=== PATIENT | female | born 1990 | race Caucasian/White ===

== ENCOUNTER 2018-08-11 20:23 | Emergency (ER) | payer SELFPAY ==
[2018-08-11 20:39] VITALS: BP 122/81
[2018-08-11] MEDS ORDERED: PENICILLIN V POTASSIUM 500 MG TABLET PO ONE (21:53)
[2018-08-11] MEDS ORDERED: HYDROCODONE/ACETAMINOPHEN 5-325 MG (6 TAB/ER DISP) PO PRN (21:54)
--- NOTE | 2018-08-11 21:56 | ER Document Report ---
HPI - HPI Time Seen by Provider: 08/11/18 21:53 Pain Level: 4 Context: Patient is a 28-year-old female that comes to the emergency department for chief complaint of toothache for the past 3 days, pain is in her left upper jaw area, she states she knows she has a fractured tooth in this area. She denies history of dental abscess or extractions. She denies sore throat, neck pain, fever/chills, or any other complaints. She denies . - REPRODUCTIVE Reproductive: DENIES: : Past Medical History - General Information source: Patient - Social History Smoking Status: Never Smoker Drug Abuse: None Lives with: Family Family History: Reviewed & Not Pertinent - Medical History Medical History: Negative Surgical Hx: Negative - Immunizations Immunizations up to date: Yes Hx Diphtheria, Pertussis, Tetanus Vaccination: Yes Vertical Provider Document - CONSTITUTIONAL General Appearance: WD/WN, No Apparent Distress - INFECTION CONTROL TRAVEL OUTSIDE OF THE [place] IN LAST 30 DAYS: No - HEENT HEENT: Atraumatic, Normocephalic, PERRLA. negative: Conjuctival Injection, Pharyngeal Exudate, Pharyngeal Tenderness, Pharyngeal Erythema, Tympanic Membrane Red, Tympanic Membrane Bulging Mouth Diagram: 1 - Dental caries with surrounding erythema of the gumline but no swelling of the gumline, no induration or fluctuance, no abscess. Oropharyngeal exam unr emarkable otherwise - NECK Neck: Normal Inspection. negative: Lymphadenopathy-Left, Lymphadenopathy-Right - RESPIRATORY Respiratory: Breath Sounds Normal, No Respiratory Distress - CARDIOVASCULAR Cardiovascular: Regular Rate, Regular Rhythm - GI/ABDOMEN Gastrointestinal: Abdomen Soft, Abdomen Non-Tender - BACK Back: Normal Inspection - MUSCULOSKELETAL/EXTREMETIES Musculoskeletal/Extremeties: MAEW, FROM, Non-Tender - NEURO Level of Consciousness: Awake, Alert, Appropriate - DERM Integumentary: Warm, Dry, No Rash Course - Re-evaluation Re-evalutation: Evaluation consistent with dental infection but no secondary abscess or Cornelio's angina noted. No other concerning findings were reported symptoms. Discussed follow-up and return precautions. Patient states understanding and agreement. - Vital Signs Vital signs: Temp Pulse Resp BP Pulse Ox 98.6 F 82 16 122/81 96 08/11/18 20:37 08/11/18 20:37 08/11/18 20:37 08/11/18 20:37 08/11/18 20:37 Discharge - Discharge Clinical Impression: Pain, dental Condition: Stable Disposition: HOME, SELF-CARE Additional Instructions: Your evaluation is consistent with a dental infection. Take antibiotics as prescribed. Follow-up with the dental referral or this will continue to occur. Return for any concerning symptoms including swelling of the face. [facility] [address] [place] [address], [id number] Prescriptions: Penicillin V Potassium [Penicillin Vk 500 mg Tablet] 500 mg PO BID #20 tablet
== END 2018-08-11 22:08 | disposition home or self-care (01) ==
LOC: ER 20:23
DX: K08.9 Disorder of teeth and supporting structures, unspecified (principal)
CPT/HCPCS: 99282

== ENCOUNTER 2018-09-23 00:24 | Emergency (ER) | payer SELFPAY ==
[2018-09-23 00:30] VITALS: BP 131/82
== END 2018-09-23 05:08 | disposition left against medical advice (07) ==
LOC: ER 00:24
DX: Z53.21 Procedure and treatment not carried out due to patient leaving prior to being seen by health care provider (principal)